=== PATIENT | male | born 1975 | race Caucasian/White ===

== ENCOUNTER 2018-02-13 17:49 | Emergency (ER) | payer OTHER ==
--- NOTE | 2018-02-13 18:28 | CPEKG ---
Heart Rate: 42 RR Interval: 1429 P-R Interval: 172 QRSD Interval: 94 QT Interval: 484 QTC Interval: 405 P [place]: 65 QRS [place]: -12 T Wave [place]: 41 EKG Severity - ABNORMAL ECG - EKG Impression: SINUS BRADYCARDIA EKG Impression: LEFT VENTRICULAR HYPERTROPHY EKG Impression: ST ELEV, PROBABLE NORMAL EARLY REPOL PATTERN Electronically Signed By: Mike Ortega 13-Feb-2018 21:03:31
[2018-02-13 20:16] LABS: PLATELET COUNT 97 10^3/uL (150-400)
[2018-02-13] MEDS ORDERED: IPRATROPIUM/ALBUTEROL 3 ML DEYVIAL IH ONE (20:55)
--- NOTE | 2018-02-13 21:02 | EDPHY ---
H & P Stated Complaint: c/o upper abd pain since yesterday-states inc with deep breath Time Seen by Provider: 02/13/18 18:02 HPI/ROS: This patient reports dyspnea that is mild at rest but more notable with any exertion. 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 Him has social history is notable for recent moved here from [place]. He reports that over the past 24 hr along with his feeling of dyspnea is had a slight"ditch bilateral upper belly right slightly more than left bordering on lower rib area. He reports that he has also had mild diaphoresis. He finally reports mild intermittent right neck pain associated with the symptoms. Peak intensity is been 6/10 however, he developed improvement after taking ibuprofen and Tylenol 1 hr prior to arrival and has minimal discomfort. He came in for further evaluation by private vehicle today. ROS: Constitutional: No fevers. He does report some fatigue recently. HEENT: Minimal coryza. No sinus pain. No ear symptoms. Pulmonary: As per HPI. No recent coughing. Cardiovascular: No chest pain at rest. He does report the discomfort in the upper belly described in HPI. Intermittent lightheadedness as well. No leg pain or swelling. GI: No lower belly pain. No nausea vomiting. No change in his appetite. No GERD symptoms. : No complaints new line Endocrine: No complaints Neuro: No headache. No numbness or tingling. No other focal symptoms. Complete review of symptoms otherwise negative. 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 Eyes: Pupils equal and round no pallor or injection. ENT, Mouth: Mucous membranes moist. Respiratory: There are no retractions, lungs are clear to auscultation. Cardiovascular: Regular rate and rhythm. No murmur gallop rub. No peripheral edema. Gastrointestinal: Abdomen is soft and nontender, no masses, bowel sounds normal. Neurological: GCS 15. No focal deficits. Skin: Warm and dry, no rashes. Musculoskeletal: Neck is supple nontender. Extremities are symmetrical, full range of motion. Psychiatric: Mood and affect normal. DIFFERENTIAL DIAGNOSIS: After history and physical exam differential diagnosis was considered for a pneumonia, pneumothorax, pulmonary embolism, myocarditis, pericarditis, reactive airway disease, hepatitis, cholecystitis Constitutional: Initial Vital Signs Temperature (C) 36.6 C 02/13/18 18:01 Heart Rate 43 L 02/13/18 18:01 Respiratory Rate 20 02/13/18 18:01 Blood Pressure 136/91 H 02/13/18 18:01 O2 Sat (%) 97 02/13/18 18:01 O2 Delivery Mode Room Air Allergies/Adverse Reactions: No Known Allergies Allergy (Unverified 02/13/18 18:00) Home Medications: Medication Instructions Recorded Albuterol Hfa Anes Only [Proair 2 puffs IH Q4 PRN #1 mdi 02/13/18 Hfa Icu (*)] Fluticasone Hfa 220 Mcg [Flovent 2 puffs IH DAILY #1 mdi 02/13/18 220 MCG Hfa MDI (*)] Medical Decision Making - Diagnostics EKG Interpretation: 12 lead EKG: Performed at 6:26 p.m. Sinus bradycardia at 42 Intervals: Normal throughout [place]: P of 65, QRS of -12, T of 41 degrees Overall assessment sinus bradycardia with LVH and early Re pole pattern consistent with athletic status Imaging Results: Imaging Impressions Chest X-Ray 02/13/18 20:31 IMPRESSION: Normal chest x-ray. Two view chest x-ray: Slightly hyperexpanded. Otherwise normal by my interpretation Imaging: I viewed and interpreted images myself ED Course/Re-evaluation: Peak flow was low at 550 with predicted of around 650 DuoNeb without improvement in his peak flow. Labs: [place] [id number] Basic metabolic panel is normal. LFTs normal exception of minimally elevated alk-phos D-dimer is normal Discussion: This patient presents with dyspnea that he knows stenosis while he is exercising since coming neck: Out of from [place]. He has a mildly low peak flow and I think that his a bilateral upper belly discomfort and tenderness is attributable to accessory muscle use while exerting in breathing. He has no significant findings on exam or workup other than the slightly low peak flows. I counseled regarding this. Will start the patient on a trial of Flovent and albuterol with plan to follow up with Dr. Araujo, outpatient physician on-call for a recheck in 5-7 days. After workup, no evidence of pulmonary embolism, pneumothorax, pneumonia, coronary syndrome, myocarditis or other red flag findings. However, patient her stands the need to return emergency department should he develop significant worsening of symptoms despite the treatment plan. - Data Points Laboratory Results: Laboratory Results 02/13/18 18:24 02/13/18 02/13/18 02/13/18 18:48 18:36 18:34 WBC RBC Hgb Hct MCV MCH MCHC RDW Plt Count MPV Neut % (Auto) Lymph % (Auto) [place] % (Auto) Eos % (Auto) Baso % (Auto) Nucleat RBC Rel Count Absolute Neuts (auto) Absolute Lymphs (auto) Absolute Monos (auto) Absolute Eos (auto) Absolute Basos (auto) Absolute Nucleated RBC Immature Gran % Immature Gran # D-Dimer POC Sodium 139 mEq/L mEq/L (135-145) POC Potassium 3.7 mEq/L mEq/L (3.3-5.0) POC Chloride 103.0 mEq/L mEq/L (97-110) POC Total CO2 25 mEq/L mEq/L (22-31) POC BUN 10 mg/dL mg/dL (7-23) POC Creatinine 0.9 mg/dL mg/dL (0.7-1.3) POC Glucose 93 mg/dL mg/dL (70-100) POC Calcium 9.2 mg/dL mg/dL (8.5-10.4) POC Total Bilirubin 0.9 mg/dL mg/dL (0.1-1.4) POC GGT 13 IU/L IU/L (5-65) POC AST 33 IU/L IU/L (17-59) POC ALT 22 IU/L IU/L (21-72) POC Alk Phosphatase 35 IU/L L IU/L (38-126) POC Troponin I 0.01 ng/mL ng/mL (0.00-0.08) POC Total Protein 6.5 g/dL g/dL (6.3-8.2) POC Albumin 4.1 g/dL g/dL (3.5-5.0) POC Amylase 44 IU/L IU/L (30-110) 02/13/18 02/13/18 18:24 18:24 WBC 4.16 10^3/uL 10^3/uL (3.80-9.50) RBC 4.20 10^6/uL L 10^6/uL (4.40-6.38) Hgb 13.0 g/dL L g/dL (13.7-17.5) Hct 39.2 % L % (40.0-51.0) MCV 93.3 fL fL (81.5-99.8) MCH 31.0 pg pg (27.9-34.1) MCHC 33.2 g/dL g/dL (32.4-36.7) RDW 11.9 % % (11.5-15.2) Plt Count 97 10^3/uL L 10^3/uL (150-400) MPV 12.0 fL H fL (8.7-11.7) Neut % (Auto) 59.9 % % (39.3-74.2) Lymph % (Auto) 20.7 % % (15.0-45.0) [place] % (Auto) 16.8 % H % (4.5-13.0) Eos % (Auto) 1.4 % % (0.6-7.6) Baso % (Auto) 1.0 % % (0.3-1.7) Nucleat RBC Rel Count 0.0 % % (0.0-0.2) Absolute Neuts (auto) 2.49 10^3/uL 10^3/uL (1.70-6.50) Absolute Lymphs (auto) 0.86 10^3/uL L 10^3/uL (1.00-3.00) Absolute Monos (auto) 0.70 10^3/uL 10^3/uL (0.30-0.80) Absolute Eos (auto) 0.06 10^3/uL 10^3/uL (0.03-0.40) Absolute Basos (auto) 0.04 10^3/uL 10^3/uL (0.02-0.10) Absolute Nucleated RBC 0.00 10^3/uL 10^3/uL (0-0.01) Immature Gran % 0.2 % % (0.0-1.1) Immature Gran # 0.01 10^3/uL 10^3/uL (0.00-0.10) D-Dimer < 0.27 ug/mLFEU ug/mLFEU (0.00-0.50) POC Sodium POC Potassium POC Chloride POC Total CO2 POC BUN POC Creatinine POC Glucose POC Calcium POC Total Bilirubin POC GGT POC AST POC ALT POC Alk Phosphatase POC Troponin I POC Total Protein POC Albumin POC Amylase Medications Given: Discontinued Medications Albuterol/Ipratropium (Duoneb) 3 ml IH EDNOW ONE Stop: 02/13/18 20:56 Last Admin: 02/13/18 20:59 Dose: 3 ml Point of Care Test Results: Chemistry 02/13/18 02/13/18 02/13/18 18:48 18:36 18:34 POC Sodium 139 mEq/L mEq/L (135-145) POC Potassium 3.7 mEq/L mEq/L (3.3-5.0) POC Chloride 103.0 mEq/L mEq/L (97-110) POC Total CO2 25 mEq/L mEq/L (22-31) POC BUN 10 mg/dL mg/dL (7-23) POC Creatinine 0.9 mg/dL mg/dL (0.7-1.3) POC Glucose 93 mg/dL mg/dL (70-100) POC Calcium 9.2 mg/dL mg/dL (8.5-10.4) POC Total Bilirubin 0.9 mg/dL mg/dL (0.1-1.4) POC GGT 13 IU/L IU/L (5-65) POC AST 33 IU/L IU/L (17-59) POC ALT 22 IU/L IU/L (21-72) POC Alk Phosphatase 35 IU/L L IU/L (38-126) POC Troponin I 0.01 ng/mL ng/mL (0.00-0.08) POC Total Protein 6.5 g/dL g/dL (6.3-8.2) POC Albumin 4.1 g/dL g/dL (3.5-5.0) POC Amylase 44 IU/L IU/L (30-110) Departure - Departure Disposition: Home, Routine, Self-Care Clinical Impression: Bilateral upper abdominal discomfort Dyspnea Qualifiers: Dyspnea type: dyspnea on exertion Qualified Code(s): R06.09 - Other forms of dyspnea Condition: Good Instructions: Acute Abdominal Pain (ED), Dyspnea (ED) Additional Instructions: Diagnosis: Dyspnea 2. Upper belly discomfort Year peak flow was a bit low today at 5:50 a.m. With anticipated around 650. You likely have some swelling the bronchi attributable to seasonal allergies or mild reactive airway disease. I think that year upper belly discomfort is from straining a bit more with you're chest wall and abdominal wall musculature to breathe while exercising. Plan: Ibuprofen Tylenol for discomfort if needed Flovent steroid inhaler-use that for 10-14 days 2 puffs daily Albuterol inhaler if needed for cough, wheeze or shortness of breath. Call Dr. Araujo-primary care physician to arrange follow-up appointment for recheck and 5-10 days. Return for any significant worsening of her symptoms despite the treatment plan to the emergency department Referrals: NONE *PRIMARY CARE P,. [Primary Care Provider] - As per Instructions Amy Araujo MD [Medical Doctor] - As per Instructions Prescriptions: Albuterol Hfa Anes Only [Proair Hfa Icu (*)] 2 puffs IH Q4 PRN #1 mdi PRN Reason: Wheezing Fluticasone Hfa 220 Mcg [Flovent 220 MCG Hfa MDI (*)] 2 puffs IH DAILY #1 mdi
[2018-02-13 21:31] VITALS: BP 136/79
== END 2018-02-13 21:39 | disposition home or self-care (01) ==
LOC: CED 17:49
DX: R06.09 Other forms of dyspnea (principal); R10.10 Upper abdominal pain, unspecified
CPT/HCPCS: 71046-PO; 80048-PO; 80076-PO; 82150-PO; 84484-PO

== ENCOUNTER 2018-07-30 14:21 | Inpatient (IN) | payer OTHER ==
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
[2018-07-30] MEDS ORDERED: IBUPROFEN 200 MG TAB PO ONE (15:59)
[2018-07-30] MEDS ORDERED: ACETAMINOPHEN 500 MG TAB PO ONE (15:59)
[2018-07-30] MEDS ORDERED: HYDROmorphONE/DILAUDID 1 MG/ML INJ IVP ONE ×2 (15:59→16:18)
[2018-07-30] MEDS ORDERED: ceFAZolin 1 GM VIAL ONE (17:02)
[2018-07-30] MEDS ORDERED: ceFAZolin 1 GM VIAL IVP ONE (17:04)
[2018-07-30 17:06] LABS: PLATELET COUNT 131 10^3/uL (150-400)
[2018-07-30] MEDS ORDERED: ONDANSETRON 4 MG/2 ML VIAL IVP PRN (20:34)
[2018-07-30] MEDS ORDERED: ONDANSETRON DISINTEGRATING 4 MG TAB PO PRN (20:34)
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
[2018-07-30] MEDS ORDERED: D5W 1/2 NS 1,000 ML IV SCH (21:30)
[2018-07-30] MEDS ORDERED: IOPAMIDOL (ISOVUE-300) 100 ML BTL ONE (21:55)
[2018-07-30] MEDS: POTASSIUM Cl (KCl) 100 ML IV SCH (23:11)
[2018-07-31] MEDS: POTASSIUM Cl (KCl) 100 ML IV SCH (00:05)
[2018-07-31] MEDS: ceFAZolin 2 GM/DEXTROSE 100 ML IV SCH ×2 (00:09→05:32)
[2018-07-31] MEDS ORDERED: POTASSIUM CL 20 MEQ TAB PO ONE (00:15)
[2018-07-31 05:04] LABS: PLATELET COUNT 121 10^3/uL (150-400)
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
[2018-07-31] MEDS ORDERED: BUPIVACAINE/EPI 0.5% 30 ML SDV ONE (06:51)
[2018-07-31] MEDS ORDERED: POLYMYXIN B SULFATE 500,000 UNIT/10 ML SYR IRR ONE (06:52)
[2018-07-31] MEDS ORDERED: BACITRACIN 50,000 UNITS/10 ML SYR IRR ONE (06:52)
[2018-07-31] MEDS ORDERED: MIDAZOLAM 2 MG/2 ML VIAL IVP ONE (07:06)
--- NOTE | 2018-07-31 07:06 | PDHPUP ---
History & Physical Update H&P update statement: This history and physical update is based on an assessment of the patient which was completed after admission or registration (within 24 hours), but prior to the surgery/procedure. H&P update: H&P reviewed & patient examined, no change in patient's condition since H&P completed
--- NOTE | 2018-07-31 07:07 | PDANEPAE ---
ANE History of Present Illness left elbow cellullitis ANE Past Medical History - Cardiovascular History Hx Hypertension: No Hx Arrhythmias: No Hx Chest Pain: No Hx Coronary Artery / Peripheral Vascular Disease: No Hx CHF / Valvular Disease: No Hx Palpitations: No - Pulmonary History Hx COPD: No Hx Recent Upper Respiratory Infection: No Hx Oxygen in Use at Home: No Hx Sleep Apnea: No Sleep Apnea Screening Result - Last Documented: Negative - Endocrine History Hx Diabetes: No Hypothyroid: No Hyperthyroid: No Obesity: no - Renal History Hx Renal Disorders: No - Liver History Hx Hepatic Disorders: No - Neurological & Psychiatric Hx Hx Neurological and Psychiatric Disorders: No - Chronic Pain History Chronic Pain: No ANE Review of Systems Review of systems is: negative Review of Systems: - Exercise capacity Exercise capacity: >=4 METS ANE Patient History - Allergies Allergies/Adverse Reactions: No Known Allergies Allergy (Verified 07/30/18 14:30) - Home Medications Home medications: home medication list seen and reviewed Home Medications: Acetaminophen [Tylenol ES 500 mg (*)] 1,000 mg PO Q4 PRN 07/30/18 [Last Taken 12:00] Cephalexin [Keflex (*)] 500 mg PO QID 07/30/18 [Last Taken 07/30/18 10:00] Ibuprofen [Motrin (*)] 400 mg PO Q4H PRN 07/30/18 [Last Taken 07/30/18 16:00] - NPO status NPO Status: no food or drink >8 hours (light meal > 6 hours ago) NPO Since - Liquids (Date): 07/31/18 NPO Since - Liquids (Time): 00:15 NPO Since - Solids (Date): 07/31/18 NPO Since - Solids (Time): 00:15 - Anes Hx Anes Hx: no prior problems - Smoking Hx Smoking Status: Never smoked - Alcohol Use Alcohol Use: Occasionally (Three drinks per week on the weekends) - Family Anes Hx Family Anes Hx: none ANE Labs/Vital Signs - Labs Result Diagrams: 07/31/18 04:44 07/31/18 04:44 - Vital Signs Blood Pressure: 115/65 Heart Rate: 60 Respiratory Rate: 16 O2 Sat (%): 94 Height: 180.34 cm Weight: 70.307 kg ANE Physical Exam - Airway Neck exam: FROM Mallampati Score: Class 2 Mouth exam: normal dental/mouth exam - Pulmonary Pulmonary: no respiratory distress - ASA Status ASA Status: I, E ANE Anesthesia Plan Anesthesia Plan: general endotracheal anesthesia
[2018-07-31] MEDS ORDERED: LR 1,000 ML IV ONE (07:08)
--- NOTE | 2018-07-31 07:10 | SOAPPROG ---
SOAP Progress Note Assessment/Plan: Assessment: L elbow and forearm cellulitis, with possible abscess/septic olecranon bursitis -the CT scan does not show a discrete abscess, however presence of gas over the elbow is concerning for a focal infectious process. As his exam has not improved this morning with regard to pain, I think it would be prudent to proceed with I&D Plan: -IV abx -plan L elbow/forearm I&D this am -will follow cultures 07/31/18 07:15 Subjective: Some of the redness in the forearm has improved, however the pain over the elbow has not improved. Still has persistent pain. Believes the redness and swelling has progressed up the arm a bit Objective: Vital Signs Temp Pulse Resp BP Pulse Ox 36.8 C 60 16 115/65 94 07/31/18 00:00 07/31/18 00:00 07/31/18 00:00 07/31/18 00:00 07/31/18 00:00 Laboratory Results 07/31/18 04:44 07/31/18 04:44 07/30/18 07/31/18 08/01/18 05:59 05:59 05:59 Intake Total 1605 Output Total 450 Balance 1155 LUE -marked diffuse swelling of the elbow/upper arm and forearm -cellulitis over forearm has slightly receded from margins, however the erythema over the elbow persists -exquisite ttp over the elbow, posterior forearm and arm -minimal pain with PROM of the elbow ICD10 Worksheet Patient Problems: Problems Problem Status Onset Cellulitis Acute Olecranon bursitis of left elbow Acute
[2018-07-31] MEDS ORDERED: MIDAZOLAM 2 MG/2 ML VIAL ONE (07:14)
[2018-07-31] MEDS ORDERED: fentaNYL 100 MCG/2 ML INJ ONE (07:15)
[2018-07-31] MEDS ORDERED: PROPOFOL 200 MG/20 ML VIAL ONE (07:15)
[2018-07-31] MEDS ORDERED: ROCURONIUM 50 MG/5 ML VIAL ONE (07:18)
[2018-07-31] MEDS ORDERED: DEXAMETHASONE 4 MG/ML VIAL ONE (07:18)
[2018-07-31] MEDS ORDERED: ONDANSETRON 4 MG/2 ML VIAL ONE (07:20)
[2018-07-31] MEDS ORDERED: LIDOCAINE 2% 5 ML SDV ONE (07:21)
[2018-07-31] MEDS ORDERED: PHENYLEPHRINE HCL 100 MCG/ML SYR IVP PRN (07:52)
[2018-07-31] MEDS ORDERED: LR 500 ML IV PRN (07:52)
[2018-07-31] MEDS ORDERED: HYDROmorphONE/DILAUDID 2 MG/ML INJ IVP PRN (07:52)
[2018-07-31] MEDS ORDERED: MEPERIDINE 25 MG/0.5 ML AMP IVP PRN (07:52)
[2018-07-31] MEDS ORDERED: NALOXONE HCL 0.4 MG/ML INJ IVP PRN (07:52)
[2018-07-31] MEDS ORDERED: ONDANSETRON 4 MG/2 ML VIAL IVP PRN (07:52)
[2018-07-31] MEDS ORDERED: ACETAMINOPHEN 500 MG TAB PO PRN (07:52)
[2018-07-31] MEDS ORDERED: ALBUTEROL 3 ML DEYVIAL IH PRN (07:52)
[2018-07-31] MEDS ORDERED: DIAZEPAM 5 MG/ML 1 ML SYR IVP PRN (07:52)
[2018-07-31] MEDS ORDERED: LABETALOL HCL 20 MG/4 ML INJ IVP PRN (07:52)
[2018-07-31] MEDS ORDERED: oxyCODONE IR 5 MG TAB PO PRN (07:52)
[2018-07-31] MEDS ORDERED: DEXAMETHASONE 4 MG/ML VIAL IVP PRN (07:52)
[2018-07-31] MEDS ORDERED: PROMETHAZINE HCL 25 MG/ML INJ IVP PRN (07:52)
[2018-07-31] MEDS ORDERED: METOCLOPRAMIDE 10 MG/2 ML VIAL IVP PRN (07:52)
[2018-07-31] MEDS ORDERED: fentaNYL 100 MCG/2 ML INJ IVP PRN (07:52)
[2018-07-31] MEDS ORDERED: GLYCOPYRROLATE 0.2 MG/1 ML VIAL ONE ×2 (08:05)
[2018-07-31] MEDS ORDERED: NEOSTIGMINE METHYLSULFATE 5 MG/5 ML SYR ONE (08:05)
[2018-07-31] MEDS ORDERED: KETOROLAC 30 MG/1 ML SDV ONE (08:07)
--- NOTE | 2018-07-31 08:26 | PDMN ---
Medical Necessity Medical necessity: [facility] M70 cellulitis - LUE redness and swelling following fall, I/D/ washout performed- extensive cellulitis , olecranon burstitis and mild sepsis noted, hypokalemia, anticipate > 2 MNn for ongoing IV abx, further monitoring and tx.
--- NOTE | 2018-07-31 09:46 | HOSPPROG ---
Hospitalist Progress Note Assessment/Plan: Pleasant 43-year-old gentleman without PMHx reports left elbow pain and forearm swelling, history of fall 2 weeks ago. First encounter, chart reviewed. Reviewed his care w Dr Coleman and Dr Serrano. *left elbow and forearm cellulitis w poss septic olecranon bursitis -Ancef -CT scan shows presence of gas over the elbow -s/p I & D *pain due to the above -prn medications *Sepsis without organ dysfunction -+ fever, leukocytosis *Hypokalemia - replacement *Plan: ID to see, will f/u with cultures. Subjective: Ross is not c/o pain during my evalution. Objective: Vital Signs Temp Pulse Resp BP Pulse Ox 36.8 C 50 L 12 103/70 96 07/31/18 09:43 07/31/18 09:43 07/31/18 09:43 07/31/18 09:43 07/31/18 09:43 Laboratory Results 07/31/18 04:44 07/31/18 04:44 07/30/18 07/31/18 08/01/18 05:59 05:59 05:59 Intake Total 1605 1060 Output Total 450 20 Balance 1155 1040 - Physical Exam Constitutional: no apparent distress, appears nourished Eyes: PERRL Ears, Nose, Mouth, Throat: hearing normal Cardiovascular: regular rate and rhythym, bradycardia Respiratory: no respiratory distress Skin: warm, other (left elbow area w dressing in place, has some swelling extending from the forearm to the wrist.) Neurologic: AAOx3 Psychiatric: interacting appropriately ICD10 Worksheet Patient Problems: Problems Problem Status Onset Cellulitis Acute Olecranon bursitis of left elbow Acute
--- NOTE | 2018-07-31 10:09 | POSTANESTH ---
Post Anesthetic Evaluation Cardiovascular Status: Normal, Stable Respiratory Status: Normal, Stable Level of Consciousness/Mental Status: Can Participate in Eval Pain Control: Adequate, Prn Tx Ordered Nausea/Vomiting Control: Adequate, Prn Tx Ordered Complications Possibly Related to Anesthesia: None Noted
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
[2018-07-31] MEDS: VANCOMYCIN 1.25 GM in D5W 250 ML IV SCH (13:54)
[2018-07-31] MEDS: HYDROCODONE/APAP 5/325 TAB PO PRN (14:00)
[2018-07-31] MEDS: LIDOCAINE 4%/MENTHOL 1% PATCH TD SCH (18:10)
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
[2018-07-31] MEDS: PATCH REMOVAL 1 EA PATCH TD SCH (20:46)
[2018-07-31] MEDS: LORazepam 2 MG/ML INJ IVP PRN (21:31)
[2018-08-01] MEDS: VANCOMYCIN 1.25 GM in D5W 250 ML IV SCH (00:58)
[2018-08-01] MEDS: HYDROCODONE/APAP 5/325 TAB PO PRN ×2 (05:50→13:39)
[2018-08-01] MEDS: LIDOCAINE 4%/MENTHOL 1% PATCH TD SCH (10:03)
--- NOTE | 2018-08-01 10:07 | HOSPPROG ---
Hospitalist Progress Note Assessment/Plan: Mriacle 43-year-old gentleman without PMHx reports left elbow pain and forearm swelling, history of fall 2 weeks ago. Evaluated the patient w Dr. Parks. *left elbow and forearm cellulitis w poss septic olecranon bursitis -wrist and hand area w more swelling and redness, did not evaluate elbow area yesterday (he had just gotten out of surgery) -concern for necrotizing fascitis-to get an MRI today -abx changed to Ancef and Clindamycin -s/p I & D *pain due to the above -prn medications *bradycardia -asymptomatic *Sepsis without organ dysfunction -+ fever, leukocytosis *Hypokalemia - replacement *Plan: check labs in a.m., MRI today Subjective: Kota is having more pain to the elbow area, more tenderness in the forearm and in the tricep area. Objective: Vital Signs Temp Pulse Resp BP Pulse Ox 37.1 C 46 L 14 101/67 96 08/01/18 08:00 08/01/18 08:00 08/01/18 08:00 08/01/18 08:00 08/01/18 08:00 Microbiology 07/31/18 07:52 Gram Stain - Final Elbow - Eswab Laboratory Results 07/31/18 04:44 07/31/18 04:44 07/31/18 08/01/18 08/02/18 05:59 05:59 05:59 Intake Total 1605 2060 Output Total 450 20 Balance 1155 2040 - Physical Exam Constitutional: appears nourished, uncomfortable Eyes: PERRL Ears, Nose, Mouth, Throat: hearing normal Cardiovascular: regular rate and rhythym, bradycardia Respiratory: no respiratory distress Skin: warm, other (left elbow area swollen, left forearm extending into the hands and fingers, left upper arm (including bicep and tricep) with swelling, warmth, eyrthema. Tenderness over the elbow, forearm and triceps.) Musculoskeletal: full muscle strength Neurologic: AAOx3 Psychiatric: interacting appropriately ICD10 Worksheet Patient Problems: Problems Problem Status Onset Cellulitis Acute Olecranon bursitis of left elbow Acute
--- NOTE | 2018-08-01 10:16 | PCMIDPN ---
Assessment/Plan: # EDUARDO Cellulitis, bursitis, GAS on cx today. Due to some progression overnight (erythema moving to hand and axilla), ongoing significant pain I have some concern for fasciitis but could also be expected trajectory of treatment of GAS. Of note, pain is basically stable since post op yesterday. Pain greater prior to surgery. --dc vancomycin --start high dose Ancef + clindamycin. Clindamycin added for concern for necrotizing fasciitis in setting of streptococcal disease for toxic binding ( [place] effect). Reviewed antibiotic risks with clindamycin. --reviewed w hand surgery, will get MRI --ordered sensi on GAS med, Abx #2 vancomycin 1.25gm IV q12h Microbiology 07/31/18 07:52 Elbow - Streptococcus Pyogenes Grp A 07/30/18 16:40 Blood Cx (2) NGTD Tdap documented w/i 10 years Subjective: patient states pain LUE similar to yesterday. Endorses that erythema has moved up the upper arm Objective: Vital Signs Temp Pulse Resp BP Pulse Ox 37.1 C 46 L 14 101/67 96 08/01/18 08:00 08/01/18 08:00 08/01/18 08:00 08/01/18 08:00 08/01/18 08:00 Microbiology 07/31/18 07:52 Gram Stain - Final Elbow - Eswab Laboratory Results 07/31/18 04:44 07/31/18 04:44 07/31/18 08/01/18 08/02/18 05:59 05:59 05:59 Intake Total 1605 2060 Output Total 450 20 Balance 1155 2040 Gen: nontoxic male lying in bed, conversational HEENT good dentition MM CV: Bradycardia, no murmur Chest: clear B, breathing easy LUE diffuse bright erythema from dorsum of hand to upper arm, almost to axilla, tenderness medial arm long flexor surface, some tenderness over bicep. Area over bicep quite swollen. No crepitus was detected. ROM of both wrist and elbow (and shoulder) was intact. fingers slightly cold and slightly slowed cap refill but radial pulse intact Skin: no other skin eruptions other than what was described as above. - Time Spent With Patient Time Spent with Patient: greater than 35 minutes (care reviewed with micro lab, Steffi Jimenez, [facility]) Time Spent with Patient: Greater than 35 minutes spent on this patients care, greater than 50% of time spent counseling, educating, and coordinating care regarding the above mentioned plan. ICD10 Worksheet Patient Problems: Problems Problem Status Onset Olecranon bursitis of left elbow Acute Cellulitis Acute
[2018-08-01] MEDS: CLINDAMYCIN 600 MG/DEXTROSE 50 ML IV SCH ×3 (10:46→22:19)
[2018-08-01] MEDS: ceFAZolin 2 GM/DEXTROSE 100 ML IV SCH ×2 (13:41→22:17)
[2018-08-01] MEDS ORDERED: CLINDAMYCIN 600 MG/DEXTROSE 50 ML IV SCH (14:00)
[2018-08-01] MEDS ORDERED: GADOBUTROL 10 ML VIAL IVP ONE (16:15)
--- NOTE | 2018-08-01 17:50 | SOAPPROG ---
SOAP Progress Note Assessment/Plan: Assessment: POD#1 s/p I&D L elbow abscess -continued pain forearm and upper arm. Erythema appears to be progressing to the upper arm. -with progression of erythema, I would recommend MRI of the upper arm and forearm to evaluate. Plan: -IV abx -appreciate care of hospitalist and ID teams -I will f/u MRI 08/01/18 17:41 Subjective: Pt seen with Dr. Parks this afternoon. He states that the pain is unchanged and has progression of erythema over the upper arm and into the wrist. Objective: Vital Signs Temp Pulse Resp BP Pulse Ox 36.3 C 52 L 17 121/83 H 93 08/01/18 17:16 08/01/18 17:16 08/01/18 17:16 08/01/18 17:16 08/01/18 17:16 Microbiology 07/31/18 07:52 Gram Stain - Final Elbow - Eswab Laboratory Results 07/31/18 04:44 07/31/18 04:44 07/31/18 08/01/18 08/02/18 05:59 05:59 05:59 Intake Total 1605 2060 Output Total 450 20 Balance 1155 2040 LUE -dressing removed. There is no purulent drainage from the I&D site -minimal pain with prom of elbow in mid arc -progression of erythema to dorsal wrist and volar aspect upper arm. Increased tone in bicep -less pain with active wrist flexion today compared to preop exam ICD10 Worksheet Patient Problems: Problems Problem Status Onset Cellulitis Acute Olecranon bursitis of left elbow Acute
[2018-08-01] MEDS: PATCH REMOVAL 1 EA PATCH TD SCH (20:06)
[2018-08-01] MEDS: LORazepam 2 MG/ML INJ IVP PRN (20:13)
[2018-08-02] MEDS: ACETAMINOPHEN 325 MG TAB PO PRN ×2 (00:04→08:15)
[2018-08-02] MEDS: ceFAZolin 2 GM/DEXTROSE 100 ML IV SCH ×3 (05:13→22:11)
[2018-08-02 05:44] LABS: PLATELET COUNT 120 10^3/uL (150-400)
[2018-08-02] MEDS: CLINDAMYCIN 600 MG/DEXTROSE 50 ML IV SCH ×3 (05:50→21:05)
[2018-08-02] MEDS: LIDOCAINE 4%/MENTHOL 1% PATCH TD SCH (09:31)
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
[2018-08-02] MEDS ORDERED: LORazepam 1 MG TAB PO PRN (10:21)
[2018-08-02] MEDS: FAMOTIDINE 20 MG TAB PO SCH ×2 (11:02→21:05)
[2018-08-02] MEDS ORDERED: POLYETHYLENE GLYCOL 3350 17 GM PKT PO PRN (11:17)
[2018-08-02] MEDS ORDERED: MAGNESIUM HYDROXIDE 30 ML UDCUP PO PRN (11:17)
[2018-08-02] MEDS ORDERED: BISACODYL 10 MG SUPP PR PRN (11:17)
[2018-08-02] MEDS ORDERED: LACTULOSE 20 GM/30 ML UDCUP PO PRN (11:17)
[2018-08-02] MEDS ORDERED: SENNOSIDES/DOCUSATE SODIUM TAB PO PRN (11:17)
--- NOTE | 2018-08-02 14:48 | HOSPPROG ---
Hospitalist Progress Note Assessment/Plan: Miracle 43-year-old gentleman without PMHx reports left elbow pain and forearm swelling, history of fall 2 weeks ago. First encounter, chart reviewed. # GAS L UE Cellulitis, bursitis, abscess; -MRI without evidence of fasciitis plus there is small amount of gradual improvement with overall erythema less intense and some recession of erythema on medial forearm -continue IV clinda + ancef -Elevation -follow sensi on GAS *pain due to the above -prn medications *bradycardia -asymptomatic *Sepsis without organ dysfunction -+ fever, leukocytosis *Hypokalemia - replacement # Nausea, no diarrhea, no vomiting: -could be abx side effect. -Start H2 donna BID -PRN Zofran -ambulation #Dispo -unclear -cont supportive care -pain control Subjective: Feeling better. Still having pain. Objective: Vital Signs Temp Pulse Resp BP Pulse Ox 36.9 C 49 L 16 120/73 97 08/02/18 14:00 08/02/18 14:00 08/02/18 14:00 08/02/18 14:00 08/02/18 14:00 Microbiology 07/31/18 07:52 Gram Stain - Final Elbow - Eswab Laboratory Results 08/02/18 04:47 08/02/18 04:47 08/01/18 08/02/18 08/03/18 05:59 05:59 05:59 Intake Total 2060 700 1000 Output Total 20 600 575 Balance 2040 100 425 - Physical Exam Constitutional: no apparent distress, appears nourished, uncomfortable Eyes: PERRL, anicteric sclera, EOMI Ears, Nose, Mouth, Throat: moist mucous membranes, hearing normal, ears appear normal Cardiovascular: No JVD, No tachycardia, No edema Respiratory: no respiratory distress, no rales or rhonchi, reduced air movement Gastrointestinal: normoactive bowel sounds, No tenderness, No ascites Skin: warm, erythema, No abrasion Musculoskeletal: joint tenderness, pain with ROM, generalized weakness Neurologic: AAOx3 Psychiatric: interacting appropriately, not anxious, not encephalopathic, thought process linear ICD10 Worksheet Patient Problems: Problems Problem Status Onset Cellulitis Acute Olecranon bursitis of left elbow Acute
--- NOTE | 2018-08-02 16:44 | SOAPPROG ---
SOAP Progress Note Assessment/Plan: Assessment: POD#2 s/p I&D L elbow abscess -exam improving -MRI does not show any closed fluid collection or evidence of fasciitis Plan: -IV abx -appreciate care of hospitalist and ID teams -begin packing changes tmrw -encourage ROM elbow, wrist, fingers Subjective: Still having pain, but admits the arm feels better overall. Has more motion in wrist. Objective: Vital Signs Temp Pulse Resp BP Pulse Ox 36.9 C 49 L 16 120/73 97 08/02/18 14:00 08/02/18 14:00 08/02/18 14:00 08/02/18 14:00 08/02/18 14:00 Microbiology 07/31/18 07:52 Gram Stain - Final Elbow - Eswab Laboratory Results 08/02/18 04:47 08/02/18 04:47 18 08/02/18 08/03/18 05:59 05:59 05:59 Intake Total 2060 700 1000 Output Total 20 600 575 Balance 2040 100 425 LUE -dressing changed. I removed the packing and placed new 1/4" packing strips. No purulence from incision site -margins of erythema stable over upper arm. Slight decrease in edema over forearm. More wrist motion without pain. Elbow ROM in mid-arc w/o pain ICD10 Worksheet Patient Problems: Problems Problem Status Onset Cellulitis Acute Olecranon bursitis of left elbow Acute
[2018-08-02] MEDS: HYDROCODONE/APAP 5/325 TAB PO PRN (18:06)
[2018-08-02] MEDS: PATCH REMOVAL 1 EA PATCH TD SCH (20:52)
[2018-08-03] MEDS: HYDROCODONE/APAP 5/325 TAB PO PRN ×2 (02:23→14:15)
[2018-08-03] MEDS: ceFAZolin 2 GM/DEXTROSE 100 ML IV SCH ×3 (05:42→21:52)
[2018-08-03] MEDS: CLINDAMYCIN 600 MG/DEXTROSE 50 ML IV SCH ×3 (06:19→21:03)
[2018-08-03] MEDS: FAMOTIDINE 20 MG TAB PO SCH ×2 (09:00→21:03)
[2018-08-03] MEDS: LIDOCAINE 4%/MENTHOL 1% PATCH TD SCH ×2 (09:01→16:08)
--- NOTE | 2018-08-03 10:43 | PCMIDPN ---
Assessment/Plan: # GAS L UE Cellulitis, complex deep forearm abscess; Continued recession of erythema. Induration and erythema now more localized to lateral forearm, upper arm swelling and erythema much improved --likely dc tomorrow on 2 more days IV ceftriaxone via PIV in infusion center. No absolute indication for specific course of longer IV , just continuing until adequate improvement --Continue ancef + clindamycin through tomorrow. Planning total 3 days clinda # Nausea: resolved med, Abx #4 Clindamycin 600 mg IV Q 8, #2 Ancef 2gm IV q8h #2 Microbiology 07/31/18 07:52 Elbow - Streptococcus Pyogenes Grp A, valenzuela-S 07/30/18 16:40 Blood Cx (2) NGTD Subjective: patient feels his arm is much improved. Nausea resolved No diarrhea Objective: Vital Signs Temp Pulse Resp BP Pulse Ox 37.1 C 40 L 16 123/76 H 100 08/03/18 07:25 08/03/18 07:25 08/03/18 07:25 08/03/18 07:25 08/03/18 07:25 Microbiology 07/31/18 07:52 Gram Stain - Final Elbow - Eswab Laboratory Results 08/02/18 04:47 08/02/18 04:47 08/02/18 08/03/18 08/04/18 05:59 05:59 05:59 Intake Total 700 1450 Output Total 600 575 Balance 100 875 C-Reactive Protein 202.8 mg/L (<10.0) H 08/01/18 04:40 - Physical Exam General Appearance: alert, no apparent distress Respiratory: No accessory muscle use Extremities: other (LUE lou erythema and enduration lateral forearm, incision w serosang drainage; upper arm erythema w 50% recession and swelling 80% resolved; tenderness much improved, ROM elbow and wrist ok. Erythema on hand fainter) Skin: No rash Neuro/Psych: alert, normal mood/affect, oriented x 3 - Line/s PIV Lines: other (R forearm), No drainage, No erythema - Time Spent With Patient Time Spent with Patient: greater than 35 minutes Time Spent with Patient: Greater than 35 minutes spent on this patients care, greater than 50% of time spent counseling, educating, and coordinating care regarding the above mentioned plan. ICD10 Worksheet Patient Problems: Problems Problem Status Onset Cellulitis Acute Olecranon bursitis of left elbow Acute
--- NOTE | 2018-08-03 13:12 | SOAPPROG ---
SOAP Progress Note Assessment/Plan: Assessment: POD#3 s/p I&D L elbow abscess -he continues to improve clinically Plan: -IV abx per ID -appreciate care of hospitalist and ID teams - packing changes tmrw -encourage ROM elbow, wrist, fingers 08/03/18 13:09 Subjective: Pt seen this morning. L arm doing much better. Pain improved. Erythema receding. Objective: Vital Signs Temp Pulse Resp BP Pulse Ox 37.1 C 40 L 16 123/76 H 100 08/03/18 07:25 08/03/18 07:25 08/03/18 07:25 08/03/18 07:25 08/03/18 07:25 Microbiology 07/31/18 07:52 Gram Stain - Final Elbow - Eswab Laboratory Results 08/02/18 04:47 08/02/18 04:47 08/02/18 08/03/18 08/04/18 05:59 05:59 05:59 Intake Total 700 1450 Output Total 600 575 Balance 100 875 LUE -erythema has receded from prior margins -swelling over hand, forearm. and upper arm decreasing -more ROM of the wrist and elbow without significant pain ICD10 Worksheet Patient Problems: Problems Problem Status Onset Cellulitis Acute Olecranon bursitis of left elbow Acute
--- NOTE | 2018-08-03 13:13 | ASMTCMCOM ---
CM Note CM Note Notes: CAROLYN spoke to Dr. Parks. Pt will most likely d/c tomorrow. Pt will require ivabx for Tuesday and Tuesday. Pt will come to the outpatient infusion center. Pts appointments are for 11AM on both days. CM wrote dc appointments in [facility]. No other needs at this time. CM available for changes. Plan: Independent Date Signed: 08/03/2018 01:12 PM Electronically Signed By:TALAT Alex
--- NOTE | 2018-08-03 13:50 | HOSPPROG ---
Hospitalist Progress Note Assessment/Plan: Miracle 43-year-old gentleman without PMHx reports left elbow pain and forearm swelling, history of fall 2 weeks ago. # GAS L UE Cellulitis, complex deep forearm abscess; - Decrease in erythema. - upper arm swelling and erythema improved - likely dc tomorrow on 2 more days IV ceftriaxone via PIV in infusion center - Continue ancef + clindamycin through tomorrow. Planning total 3 days clinda # Nausea: resolved *pain due to the above -prn medications *bradycardia -asymptomatic *Sepsis without organ dysfunction -+ fever, leukocytosis *Hypokalemia - replacement #Dispo -unclear,possibly in am if doing well -cont supportive care -pain control Subjective: Up in room. Pain better. Feeling better. Objective: Vital Signs Temp Pulse Resp BP Pulse Ox 37.1 C 40 L 16 123/76 H 100 08/03/18 07:25 08/03/18 07:25 08/03/18 07:25 08/03/18 07:25 08/03/18 07:25 Microbiology 07/31/18 07:52 Gram Stain - Final Elbow - Eswab Laboratory Results 08/02/18 04:47 08/02/18 04:47 08/02/18 08/03/18 08/04/18 05:59 05:59 05:59 Intake Total 700 1450 Output Total 600 575 Balance 100 875 - Physical Exam Constitutional: no apparent distress, appears nourished Eyes: PERRL, anicteric sclera Ears, Nose, Mouth, Throat: moist mucous membranes, hearing normal Cardiovascular: bradycardia, No JVD, No edema Respiratory: no respiratory distress, reduced air movement Gastrointestinal: No tenderness, No ascites Skin: warm, erythema Musculoskeletal: joint tenderness, pain with ROM, generalized weakness Neurologic: AAOx3 Psychiatric: interacting appropriately, not anxious, not encephalopathic ICD10 Worksheet Patient Problems: Problems Problem Status Onset Olecranon bursitis of left elbow Acute Cellulitis Acute
[2018-08-03] MEDS: PATCH REMOVAL 1 EA PATCH TD SCH (21:10)
[2018-08-04] MEDS: HYDROCODONE/APAP 5/325 TAB PO PRN (03:32)
[2018-08-04 08:38] VITALS: BP 123/79
--- NOTE | 2018-08-04 08:42 | PCMIDPN ---
Assessment/Plan: # GAS L UE Cellulitis, complex deep forearm abscess; Continued recession of erythema. Much, much better today --keep w plan for IV ceftriaxone in infusion center Sat and Sun --dc today after dose of ceftriaxone --I will meet patient & his to teach dressing change tomorrow AM in infusion center --continue elevation med, Abx #5 s/p 3 days Clindamycin 600 mg IV Q 8 s/p 3 days Ancef 2gm IV q8h Rx Ceftriaxone 2gm today Microbiology 07/31/18 07:52 Elbow - Streptococcus Pyogenes Grp A, valenzuela-S 07/30/18 16:40 Blood Cx (2) Neg Subjective: no specific c/o still with pain lateral arm with palpation Objective: Vital Signs Temp Pulse Resp BP Pulse Ox 37.3 C 46 L 15 114/72 93 08/04/18 00:00 08/04/18 00:00 08/04/18 00:00 08/04/18 00:00 08/04/18 00:00 Microbiology 07/31/18 07:52 Gram Stain - Final Elbow - Eswab Laboratory Results 08/02/18 04:47 08/02/18 04:47 08/03/18 08/04/18 08/05/18 05:59 05:59 05:59 Intake Total 1450 1550 Output Total 575 Balance 875 1550 C-Reactive Protein 202.8 mg/L (<10.0) H 08/01/18 04:40 General Appearance: alert, no apparent distress Respiratory: No accessory muscle use Extremities: LUE lou erythema and induration lateral forearm - less intense than yesterday, packing soaked w moderately purulent material; upper arm minimal erythema remains; tenderness much improved but still present- ranjan lateral forearm, ROM elbow and wrist ok. Erythema on hand fainter and swelling improved. radial pulse 2+ Skin: No rash Neuro/Psych: alert, normal mood/affect, oriented x 3 - Time Spent With Patient Time Spent with Patient: greater than 35 minutes (care coordination w hospitalist, nursing. Teaching on packing, signs of worsening symptoms, antibiotic side effects and instructions) Time Spent with Patient: Greater than 35 minutes spent on this patients care, greater than 50% of time spent counseling, educating, and coordinating care regarding the above mentioned plan. ICD10 Worksheet Patient Problems: Problems Problem Status Onset Cellulitis Acute Olecranon bursitis of left elbow Acute
[2018-08-04] MEDS: FAMOTIDINE 20 MG TAB PO SCH (08:50)
[2018-08-04] MEDS: LIDOCAINE 4%/MENTHOL 1% PATCH TD SCH (09:01)
--- NOTE | 2018-08-04 14:02 | GDS ---
DISCHARGE DIAGNOSES: 1. Group A Streptococcus left upper extremity cellulitis. 2. Nausea. 3. Pain. 4. Bradycardia. 5. Sepsis. 6. Hypokalemia. CONSULTATIONS: 1. Infectious Disease. 2. Orthopedics. PHYSICAL EXAM: GENERAL: The patient is alert. VITAL SIGNS: Afebrile at 36.6, pulse 60. Respirato ry rate is 12. Blood pressure is 123/79, saturating 98% on room air. I have seen and evaluated the patient on the day of discharge. HOSPITAL COURSE: The patient is a 43-year-old male who presented to the emergency room with complain ts of left elbow pain and swelling, is evaluated and diagnosed with: 1. Group A strep with left upper extremity cellulitis and complex deep forearm abscess. During this hospitalization, he received surgical intervention, as well as IV antibiotic therapy. His symptoms are significantly improved. A consultation was obtained from Infectious Disease, as well as Orthoped ics. He will continue IV antibiotic therapy for a total of 3 days and then transitioned to oral anti biotics. 2. Nausea. This has resolved. 3. Pain. His pain is well controlled with medications. 4. Bradycardia. This is the patient's baseline, and he is asymptomatic. 5. Hypokalemia. Replacement has been managed. 6. Sepsis, without organ dysfunction. The patient has resolved. DISPOSITION: He will be discharged home independently. Followup will be at the Infusion [facility] for 3 doses of clindamycin and then transitioned to oral antibiotic per Infectious Disease. He will also follow up with Dr. Estefanía Parks, as well as Dr. Leoncio Coleman. There are no pending studies. I review ed the patient's disposition with Dr. Parks of Infectious Disease, who is in agreement with this buck n. DISCHARGE MEDICATIONS: Please refer to EMR form. I have provided the prescriptions for [place]. I spent greater than 35 minutes in the care, coordination, and management of the patient's dispositio n. /[id number]/MODL
== END 2018-08-04 09:57 | disposition home or self-care (01) | DRG 854 ==
LOC: CED 14:21 → CEDHOLD 16:06 → F3N 20:24 → OBSVTOIN 21:00 → F3E 08-02 13:58
PROVIDERS: ADMIT Student in an Organized Health Care Education/Training Program; ATTEND Student in an Organized Health Care Education/Training Program
PROC: 0J9H3ZZ Drainage of Left Lower Arm Subcutaneous Tissue and Fascia, Percutaneous Approach (ICD-10-PCS; 2018-07-30)
PROC: 0J9H0ZZ Drainage of Left Lower Arm Subcutaneous Tissue and Fascia, Open Approach (ICD-10-PCS; principal; 2018-07-31 07:15)
DX: A40.0 Sepsis due to streptococcus, group A (principal); L02.414 Cutaneous abscess of left upper limb; L03.114 Cellulitis of left upper limb; R11.0 Nausea; T36.8X5A Adverse effect of other systemic antibiotics, initial encounter; T36.1X5A Adverse effect of cephalosporins and other beta-lactam antibiotics, initial encounter; S50.312A Abrasion of left elbow, initial encounter; T79.8XXA Other early complications of trauma, initial encounter; Y93.55 Activity, bike riding; E87.6 Hypokalemia
CPT/HCPCS: 73080-PO; 80048-PO; 83605-PO; 96374; A9585; J0690; J0696; J1100; J1170; J1885; J2060; J2250; J2270; J2405; J2704; J2710; J3010; J3370; J3480; Q9967